=== PATIENT | female | born 1980 ===

== ENCOUNTER → 2017-04-17 | Outpatient (CLI) | payer OTHER ==
[~2017-04-17] VITALS: Ht 162.6 cm; Wt 103.6 kg
[~2017-04-17] MED LIST: MOTRIN 800800 MG/TAB PO; OMEGA-3 1000 MG1 CAP PO; PERCOCET 325 MG1 TA2 PO; PRENATAL1 TA7 PO; VALTREX1 GM PO; ZYRTEC 10MG10 MG PO
[2017-04-17 23:17] VITALS: BP 129/67; PULSE 75; TEMP 97.9
== END ==
LOC: LDRO 22:52 → LDR 04-18 01:53
DX: O46.93 Antepartum hemorrhage, unspecified, third trimester (principal); Z3A.39 39 weeks gestation of pregnancy

== ENCOUNTER 2017-04-22 08:20 | Inpatient (IN) | payer OTHER ==
[~2017-04-22] VITALS: Ht 162.6 cm; Wt 103.6 kg
[~2017-04-22 08:20] MED LIST changes: -MOTRIN 800800 MG/TAB PO; -PERCOCET 325 MG1 TA2 PO; -ZYRTEC 10MG10 MG PO
[2017-04-26] VITALS (36 sets, daily range): BP systolic 79–148; BP diastolic 37–84; PULSE 57–112; TEMP 98.1–98.7
[2017-04-26] MEDS ORDERED: ZYRTEC 10MG10 MG PO (07:10)
[2017-04-26 07:22] LABS: BASO % 0.2 % (0.0-2.0); EOS # 0.1 (0.0-0.7); EOS % 1.1 % (0-4.0); GRAN # 8.5 (1.4-6.5); GRAN % 76.8 % (42.2-75.2); HEMOGLOBIN 12.4 g/dl (12.5-16.0); LYMPH # 1.8 (1.2-3.4); LYMPH % 16.1 % (20.0-51.0); MEAN CELL VOLUME 90 fl (80.0-100.0); MEAN CORPUSCULAR HEMOGLOBIN 31 pg (27.0-31.0); MEAN CORPUSCULAR HGB CONC 34 g/dl (33.0-37.0); MEAN PLATELET VOLUME 10.1 fl (7.4-10.4); MONO # 0.6 (0.1-0.6); MONO % 5.3 % (1.7-9.3); PLATELET COUNT 205 K/mm3 (130-400); RED BLOOD COUNT 4.01 M/mm3 (4.10-5.30); REDCELL DISTRIBUTION WIDTH-CV 14.5 % (11.5-14.5)
[2017-04-26 07:26] LABS: HEMATOCRIT 36.2 % (37.0-47.0)
[2017-04-26] MEDS ORDERED: PERCOCET 325 MG1 TA2 PO (14:34)
[2017-04-26] MEDS ORDERED: MOTRIN 800800 MG/TAB PO (14:34)
[2017-04-27 16:00] VITALS: BP 113/47; PULSE 67; TEMP 98.7
[2017-04-27 22:00] VITALS: BP 128/48; PULSE 78; TEMP 98.1
[2017-04-28 07:56] VITALS: BP 126/65; PULSE 71; TEMP 97.9
== END 2017-04-28 11:20 | disposition home or self-care (01) | DRG 775 ==
LOC: EDSTATUS 08:20 → LDRO 10:53 → LDR 04-26 06:34 → OB 04-26 18:00
PROVIDERS: Obstetrics & Gynecology
PROC: 10E0XZZ Delivery of Products of Conception, External Approach (ICD-10-PCS; principal; 2017-04-26)
PROC: 0KQM0ZZ Repair Perineum Muscle, Open Approach (ICD-10-PCS; 2017-04-26)
DX: O48.0 Post-term pregnancy (principal); O34.211 Maternal care for low transverse scar from previous cesarean delivery; N85.8 Other specified noninflammatory disorders of uterus; O70.1 Second degree perineal laceration during delivery; O69.81X0 Labor and delivery complicated by cord around neck, without compression, not applicable or unspecified; Z3A.40 40 weeks gestation of pregnancy; Z37.0 Single live birth
CPT/HCPCS: J2590; J2795; J7120

== ENCOUNTER → 2023-02-15 | Outpatient (CLI) | payer OTHER ==
[~2023-02-15] MED LIST changes: +MOTRIN 800800 MG/TAB PO; +PERCOCET 325 MG1 TA2 PO; +ZYRTEC 10MG10 MG PO
== END ==
LOC: MC.RAD 16:40
DX: Z12.31 Encounter for screening mammogram for malignant neoplasm of breast (principal); N63.20 Unspecified lump in the left breast, unspecified quadrant

== ENCOUNTER → 2024-06-05 | Outpatient (CLI) | payer BC | LOC: MC.RAD 16:33 | DX: Z12.31 Encounter for screening mammogram for malignant neoplasm of breast (principal); N64.89 Other specified disorders of breast ==